=== PATIENT | female | born 1990 | race Caucasian/White ===

== ENCOUNTER 2019-08-13 07:04 | Outpatient (CLI) | payer BC | END 2019-08-13 23:59 | disposition home or self-care (01) | LOC: CFH 07:04 | PROVIDERS: ATTEND Internal Medicine Cardiovascular Disease | DX: I36.1 Nonrheumatic tricuspid (valve) insufficiency (principal) | CPT/HCPCS: 93306 ==

== ENCOUNTER 2020-02-22 14:05 | Inpatient (IN) | payer BC ==
[~2020-02-22] VITALS: Ht 167.6 cm; Wt 85.0 kg
[2020-02-25] MEDS ORDERED: OXYTOCIN 30U/ 0.9% NaCL 500ML 500 ML IV ONE (10:20)
[2020-02-25] MEDS ORDERED: D5%-LACTATED RINGERS 1,000 ML IV SCH (10:20)
[2020-02-25] MEDS ORDERED: NEWBORN KIT ONE (10:21)
[2020-02-25] MEDS: LACTATED RINGERS 1,000 ML IV SCH ×2 (10:25→11:10)
[2020-02-25] MEDS ORDERED: LIDOCAINE 1%, 20ML ONE (10:25)
[2020-02-25] MEDS ORDERED: OXYTOCIN 30U/ 0.9% NaCL 500ML 500 ML ONE ×2 (10:26→15:48)
[2020-02-25] MEDS ORDERED: MISOPROSTOL 200 MCG TABLET ONE (10:26)
[2020-02-25] MEDS ORDERED: TERBUTALINE 1 MG/ML, 1ML SQ PRN (10:30)
[2020-02-25] MEDS ORDERED: PENICILLIN GK 5,000,000 UNITS in DEXTROSE 5% 100 ML IVPB ONE (10:30)
[2020-02-25] MEDS ORDERED: METOCLOPRAMIDE 5 MG/ML, 2ML IVPush PRN (10:30)
[2020-02-25] MEDS ORDERED: FENTANYL PF 100 MCG/2ML IV PRN (10:30)
[2020-02-25] MEDS ORDERED: SODIUM CITRATE/CITRIC ACID 30 ML UDC PO PRN (10:30)
[2020-02-25] MEDS ORDERED: ONDANSETRON 2MG/ML, 2ML IVPush PRN ×2 (10:30→12:30)
[2020-02-25] MEDS ORDERED: TERBUTALINE 1 MG/ML, 1ML IVPush PRN (10:30)
[2020-02-25] MEDS ORDERED: FENTANYL PF 100 MCG/2ML IVPush PRN (10:30)
[2020-02-25] MEDS: PLEASE ENTER HEIGHT AND WEIGHT MC SCH ×2 (10:30→18:30)
[2020-02-25] MEDS ORDERED: ONDANSETRON 2MG/ML, 2ML ONE (10:46)
[2020-02-25 10:47] LABS: BASOPHILS # (AUTO) 0.12 x10^3/uL (0-0.1); BASOPHILS % (AUTO) 1 % (0-1); EOSINOPHILS # (AUTO) 0.01 x10^3/uL (0-0.4); EOSINOPHILS % (AUTO) 0 % (1-7); LYMPHOCYTES # (AUTO) 2.35 x10^3/uL (1-3.4); LYMPHOCYTES % (AUTO) 14 % (22-44); MD NO; MEAN CORPUSCULAR HEMOGLOBIN 30.4 pg (27.0-34.8); MEAN CORPUSCULAR HGB CONC 33.8 g/dL (32.4-35.8); MEAN PLATELET VOLUME 9.5 fL (7.4-10.4); MONOCYTES # (AUTO) 0.44 x10^3/uL (0.2-0.8); MONOCYTES % (AUTO) 3 % (2-9); NEUTROPHILS # (AUTO) 13.56 x10^3/uL (1.8-6.8); NEUTROPHILS % (AUTO) 82 % (42-75); PLATELET COUNT 240 x10^3/uL (130-400); RED BLOOD COUNT 4.16 x10^6/uL (3.82-5.3); RED CELL DISTRIBUTION WIDTH 13.8 % (9.6-15.2)
[2020-02-25] MEDS ORDERED: FENTANYL/BUPIV./NS/PF 250 ML EPIDCONT ONE (10:59)
[2020-02-25] MEDS ORDERED: BUPIVACAINE 0.25% ONE (10:59)
[2020-02-25] MEDS ORDERED: FLU VACC QS2020-21(6MOS UP)/PF 60MCG/0.5 ML SYR IM-VACC ONE (11:30)
[2020-02-25] MEDS ORDERED: OXYTOCIN 30U/ 0.9% NaCL 500ML 500 ML IV PRN (12:08)
[2020-02-25] MEDS ORDERED: FENTANYL/BUPIV./NS/PF 250 ML EPIDCONT SCH (12:16)
[2020-02-25] MEDS ORDERED: LACTATED RINGERS 1,000 ML IV SCH (12:16)
[2020-02-25] MEDS ORDERED: EPHEDRINE 50 MG/ML, 1ML IVPush PRN (12:30)
[2020-02-25] MEDS ORDERED: DIPHENHYDRAMINE 50 MG/ML, 1ML IVPush PRN (12:30)
[2020-02-25] MEDS ORDERED: NALOXONE 0.4 MG/ML, 1ML IVPush PRN (12:30)
[2020-02-25] MEDS ORDERED: LACTATED RINGERS 1,000 ML IVBOLUS PRN (13:00)
[2020-02-25] MEDS ORDERED: PENICILLIN GK 2,500,000 UNITS in DEXTROSE 5% 100 ML IVPB SCH (14:30)
[2020-02-25] MEDS ORDERED: IBUPROFEN 600 MG TABLET ONE (15:48)
[2020-02-25] MEDS: OXYTOCIN 30U/ 0.9% NaCL 500ML 500 ML IV SCH (15:56)
[2020-02-25] MEDS ORDERED: OXYcodone/APAP 5/325MG TABLET PO PRN (16:00)
[2020-02-25] MEDS ORDERED: IBUPROFEN 800 MG TABLET PO PRN (16:00)
[2020-02-25] MEDS ORDERED: MISOPROSTOL 200 MCG TABLET PR PRN (16:00)
[2020-02-25] MEDS ORDERED: HYDROcodone/APAP 5/325 TABLET PO PRN (16:00)
[2020-02-25] MEDS ORDERED: BISACODYL 10 MG SUPP PR PRN (16:00)
[2020-02-25] MEDS ORDERED: RHOGAM FROM BLOOD BANK 1 NOTE EA IM/IV ONE (16:00)
[2020-02-25] MEDS ORDERED: ONDANSETRON 2MG/ML, 2ML IV PRN (16:00)
[2020-02-25 17:45] VITALS: BP 119/73
[2020-02-25 19:30] VITALS: BP 120/80
[2020-02-25] MEDS: DOCUSATE 100 MG CAPSULE PO PRN (21:02)
[2020-02-25 23:57] LABS: BASOPHILS # (AUTO) 0.21 x10^3/uL (0-0.1); BASOPHILS % (AUTO) 1 % (0-1); EOSINOPHILS # (AUTO) 0.07 x10^3/uL (0-0.4); EOSINOPHILS % (AUTO) 1 % (1-7); LYMPHOCYTES # (AUTO) 3.09 x10^3/uL (1-3.4); LYMPHOCYTES % (AUTO) 20 % (22-44); MD NO; MEAN CORPUSCULAR HEMOGLOBIN 30.7 pg (27.0-34.8); MEAN CORPUSCULAR HGB CONC 33.8 g/dL (32.4-35.8); MEAN PLATELET VOLUME 9.4 fL (7.4-10.4); MONOCYTES # (AUTO) 1.11 x10^3/uL (0.2-0.8); MONOCYTES % (AUTO) 7 % (2-9); NEUTROPHILS # (AUTO) 10.64 x10^3/uL (1.8-6.8); NEUTROPHILS % (AUTO) 70 % (42-75); PLATELET COUNT 195 x10^3/uL (130-400); RED BLOOD COUNT 3.67 x10^6/uL (3.82-5.3); RED CELL DISTRIBUTION WIDTH 14.1 % (9.6-15.2)
[2020-02-26 00:10] VITALS: BP 114/77
[2020-02-26] MEDS: OXYTOCIN 30U/ 0.9% NaCL 500ML 500 ML IV SCH (01:56)
[2020-02-26] MEDS: PLEASE ENTER HEIGHT AND WEIGHT MC SCH (02:30)
[2020-02-26] MEDS: ACETAMINOPHEN 325 MG TABLET PO PRN ×5 (04:02→21:10)
[2020-02-26 04:10] VITALS: BP 126/85
[2020-02-26] MEDS: IBUPROFEN 200 MG TABLET PO PRN ×3 (06:07→19:59)
[2020-02-26 07:40] VITALS: BP 117/78
[2020-02-26] MEDS: DOCUSATE 100 MG CAPSULE PO PRN ×2 (07:52→19:59)
[2020-02-26] MEDS: PRENATAL VIT/IRON/FA 1 EACH TABLET PO SCH (07:52)
[2020-02-26 12:05] VITALS: BP 113/75
[2020-02-26 20:10] VITALS: BP 118/77
[2020-02-27] MEDS: ACETAMINOPHEN 325 MG TABLET PO PRN ×3 (02:10→11:57)
[2020-02-27] MEDS: IBUPROFEN 200 MG TABLET PO PRN ×2 (02:10→10:06)
[2020-02-27] MEDS ORDERED: IBUPROFEN 600 MG TABLET ONE (07:23)
[2020-02-27] MEDS: DOCUSATE 100 MG CAPSULE PO PRN (07:40)
[2020-02-27] MEDS: PRENATAL VIT/IRON/FA 1 EACH TABLET PO SCH (07:40)
[2020-02-27 08:21] VITALS: BP 120/81
[2020-02-27] MEDS ORDERED: IBUP-1223 PO (10:55)
[2020-02-27] MEDS ORDERED: DOCU-131 PO (10:56)
== END 2020-02-27 13:38 | disposition home or self-care (01) | DRG 807 ==
LOC: LDIP 02-25 10:17 → 2NW 02-25 16:44 → LDIP 02-25 17:01 → 2NW 02-25 17:35
PROVIDERS: ADMIT Obstetrics & Gynecology; ATTEND Obstetrics & Gynecology
PROC: 10E0XZZ Delivery of Products of Conception, External Approach (ICD-10-PCS; principal; 2020-02-25)
PROC: 0HQ9XZZ Repair Perineum Skin, External Approach (ICD-10-PCS; 2020-02-25)
PROC: 3E0R3BZ Introduction of Anesthetic Agent into Spinal Canal, Percutaneous Approach (ICD-10-PCS; 2020-02-25)
PROC: 00HU33Z Insertion of Infusion Device into Spinal Canal, Percutaneous Approach (ICD-10-PCS; 2020-02-25)
DX: O99.824 Streptococcus B carrier state complicating childbirth (principal); Z37.0 Single live birth; O69.81X0 Labor and delivery complicated by cord around neck, without compression, not applicable or unspecified; O70.0 First degree perineal laceration during delivery; Z20.828 Contact with and (suspected) exposure to other viral communicable diseases; Z3A.40 40 weeks gestation of pregnancy
CPT/HCPCS: 36415; J7121; 85025; 86592; 86850; 86900; 87635; G0378; J2405; J2540; J2590; J3010; J7120

== ENCOUNTER 2020-02-25 04:26 | Outpatient (CLI) | payer BC ==
[2020-02-25 04:53] VITALS: BP 128/91
== END 2020-02-25 06:24 | disposition home or self-care (01) ==
LOC: LAB 04:26 → LDOP 06:24
PROVIDERS: ATTEND Obstetrics & Gynecology
DX: O26.893 Other specified pregnancy related conditions, third trimester (principal); Z3A.40 40 weeks gestation of pregnancy
CPT/HCPCS: 59025